=== PATIENT | male | born 1965 | race Caucasian/White ===

== ENCOUNTER → 2018-11-21 | Outpatient (CLI) | payer OTHER ==
[~2018-11-21] MED LIST: LIPITOR20 MG PO
--- NOTE | 2018-11-21 16:45 | Diagnostic Imaging Report ---
TECHNIQUE: Magnetic resonance imaging of the RIGHT KNEE was performed WITHOUT injected contrast. HISTORY: Right knee pain COMPARISON: None available. FINDINGS: LIGAMENTS AND TENDONS: ACL: Anterior cruciate ligament graft reconstruction status post bone patellar bone autograft. Fibers intact. No complication. PCL: Intact Collateral ligaments: Intact Iliotibial band: Unremarkable Popliteal tendon: Intact Extensor mechanism: Intact JOINT: Menisci: Medial: Intact Lateral: The anterior horn appears absent with extrusion of the body. Articular Cartilage: Medial Compartment: Partial-thickness cartilage loss Lateral Compartment: Partial-thickness cartilage loss Patellofemoral Compartment: High-grade cartilage loss with areas of full-thickness erosion of the lateral facet. Joint Fluid: Moderate joint effusion with synovitis. Calcified body posterior recess measuring 8 mm. BONE: No focal or infiltrative bone marrow replacing abnormality. No acute fracture. SOFT TISSUES: Otherwise, unremarkable. IMPRESSION: Anterior cruciate ligament graft reconstruction with intact fibers. No tear. Lateral meniscus presumed partial meniscectomy to the anterior horn with extrusion of the body. Tricompartment cartilage loss, patellofemoral compartment predominant. Joint effusion with synovitis Signed by: Dr. Matthew Bonilla M.D. on 11/21/2018 4:42 PM
== END ==
LOC: MRI 15:07
PROVIDERS: ATTEND Family Medicine
DX: S83.231A Complex tear of medial meniscus, current injury, right knee, initial encounter (principal)